=== PATIENT | male | born 1965 | race Caucasian/White ===

== ENCOUNTER 2020-03-11 15:27 | Emergency (ER) | payer OTHER ==
[~2020-03-11] VITALS: Ht 177.8 cm; Wt 102.1 kg
[2020-03-11 15:36] VITALS: BP 132/84
--- NOTE | 2020-03-11 17:42 | NUR ---
Patient discharged to home in stable condition. Written and verbal after care instructions given. Patient verbalizes understanding of instruction.
== END 2020-03-11 17:42 | disposition home or self-care (01) ==
LOC: ER 15:37
DX: R07.81 Pleurodynia (principal)
CPT/HCPCS: 71100-TC